=== PATIENT | female | born 1985 | race Two or more races ===

== ENCOUNTER 2017-09-24 17:50 | Emergency (ER) | payer MEDICAID, OTHER ==
[~2017-09-24] VITALS: Ht 154.9 cm; Wt 127.0 kg
[2017-09-24 18:00] VITALS: BP 118/69
[2017-09-24] MEDS ORDERED: ALBUTEROL SULF 2.5 MG/0.5ML(0.5%) NEB SOLN NEB ONE (18:30)
[2017-09-24] MEDS ORDERED: IPRATROPIUM BROM 0.5 MG/2.5ML INH SOL NEB ONE (18:30)
[2017-09-24] MEDS ORDERED: cefTRIAXone SOD 1,000 MG VL IM ONE (20:45)
[2017-09-24] MEDS ORDERED: methylPREDNISolone SOD SUCC 125 MG/2 ML VL IM ONE (20:45)
== END 2017-09-24 21:14 | disposition home or self-care (01) ==
LOC: ER 17:57
DX: J45.909 Unspecified asthma, uncomplicated (principal)
CPT/HCPCS: 71046; 94640; 96372; 99284; J0696; J2930

== ENCOUNTER 2019-02-21 17:07 | Emergency (ER) | payer MEDICAID ==
[~2019-02-21] VITALS: Ht 157.5 cm; Wt 89.8 kg
[2019-02-21 17:14] VITALS: BP 131/77
[2019-02-21] MEDS ORDERED: methylPREDNISolone SOD SUCC 125 MG/2 ML VL IM ONE (17:30)
[2019-02-21] MEDS ORDERED: cefTRIAXone SOD 1,000 MG VL IM ONE (17:30)
[2019-02-21] MEDS ORDERED: ALBUTEROL SULF 2.5 MG/0.5ML(0.5%) NEB SOLN NEB ONE (17:30)
[2019-02-21] MEDS ORDERED: IPRATROPIUM BROM 0.5 MG/2.5ML INH SOL NEB ONE (17:30)
[2019-02-21] MEDS ORDERED: PATIENTS OWN MEDICATION (XOPENEX 1.25 MG) NEB STA (18:00)
[2019-02-21] MEDS ORDERED: LEVALBUTEROL HCL 1.25 MG/0.5 ML NEB SOLN NEB STA (18:26)
== END 2019-02-21 19:18 | disposition home or self-care (01) ==
LOC: ER 17:09
DX: J45.901 Unspecified asthma with (acute) exacerbation (principal); J03.90 Acute tonsillitis, unspecified
CPT/HCPCS: 94640; 96372; 99284; J0696; J2930; J7611; J7612; J7644

== ENCOUNTER 2019-05-30 08:20 | Emergency (ER) | payer MEDICAID ==
[~2019-05-30] VITALS: Ht 154.9 cm; Wt 90.7 kg
[2019-05-30] MEDS ORDERED: ALBUTEROL SULF 2.5 MG/0.5ML(0.5%) NEB SOLN NEB ONE ×3 (09:00→09:30)
[2019-05-30] MEDS ORDERED: IPRATROPIUM BROM 0.5 MG/2.5ML INH SOL ONE ×2 (09:00→09:37)
[2019-05-30] MEDS ORDERED: methylPREDNISolone SOD SUCC 125 MG/2 ML VL IM ONE (09:00)
[2019-05-30] MEDS ORDERED: IPRATROPIUM BROM 0.5 MG/2.5ML INH SOL NEB ONE (09:00)
[2019-05-30] MEDS ORDERED: HYDROcodone-ACET 5/325MG TAB PO ONE (10:30)
[2019-05-30 10:32] VITALS: BP 125/78
== END 2019-05-30 10:35 | disposition home or self-care (01) ==
LOC: ER 08:21
DX: S70.362A Insect bite (nonvenomous), left thigh, initial encounter (principal); R09.81 Nasal congestion; J45.901 Unspecified asthma with (acute) exacerbation; W57.XXXA Bitten or stung by nonvenomous insect and other nonvenomous arthropods, initial encounter; Y93.89 Activity, other specified; Y99.8 Other external cause status; Y92.89 Other specified places as the place of occurrence of the external cause
CPT/HCPCS: 94640; 96372; 99284; J2930; J7611; J7644

== ENCOUNTER 2019-08-01 10:16 | Emergency (ER) | payer MEDICAID ==
[~2019-08-01] VITALS: Ht 157.5 cm; Wt 95.3 kg
[2019-08-01] MEDS ORDERED: ALBUTEROL SULF 2.5 MG/0.5ML(0.5%) NEB SOLN NEB STA (10:27)
[2019-08-01] MEDS ORDERED: IPRATROPIUM BROM 0.5 MG/2.5ML INH SOL NEB ONE (10:30)
[2019-08-01 11:03] VITALS: BP 118/87
[2019-08-01] MEDS ORDERED: methylPREDNISolone SOD SUCC 125 MG/2 ML VL IM ONE (11:15)
== END 2019-08-01 11:43 | disposition home or self-care (01) ==
LOC: ER 10:27
DX: J45.901 Unspecified asthma with (acute) exacerbation (principal)
CPT/HCPCS: 94640; 96372; 99283; J2930; J7611; J7644

== ENCOUNTER 2019-11-06 05:46 | Inpatient (IN) | payer MEDICAID ==
[~2019-11-06] VITALS: Ht 154.9 cm; Wt 89.0 kg
[2019-11-06] MEDS ORDERED: IPRATROPIUM BROM 0.5 MG/2.5ML INH SOL NEB ONE ×2 (06:00→10:15)
[2019-11-06] MEDS ORDERED: ALBUTEROL SULF 2.5 MG/0.5ML(0.5%) NEB SOLN NEB ONE ×3 (06:00→10:15)
[2019-11-06 06:31] LABS: Basophils # (auto) 0.1 10 ^3/uL (0-0.2); Basophils % (auto) 0.7 % (0.0-2.0); Eosinophils # (auto) 1.1 10 ^3/uL (0-0.8); Eosinophils % (auto) 12.3 % (0.0-7.0); Hematocrit 40.2 % (36.0-46.0); Hemoglobin 13.7 g/dL (12.2-16.2); Lymphocytes # (auto) 2.9 10 ^3/uL (0.4-5.4); Lymphocytes % (auto) 32.4 % (10.0-50.0); Mean Corpuscular Volume 99.7 fL (80.0-100.0); Monocytes # (auto) 0.6 10 ^3/uL (0-1.3); Monocytes % (auto) 6.9 % (0.0-12.0); Neutrophils # (auto) 4.2 10 ^3/uL (1.6-8.6); Neutrophils % (auto) 47.7 % (37.0-80.0); Platelet Count (auto) 265 10^3/uL (140-450); Red Blood Cells 4.03 10^6/uL (4.0-5.20); Red Cell Distribution Width 14.2 % (11.8-14.3); White Blood Cell 8.9 10^3/uL (4.4-10.8)
[2019-11-06 06:52] LABS: Albumin 3.7 g/dL (3.4-5.0); Calcium 8.7 mg/dL (8.5-10.1); Potassium 3.7 mmol/L (3.5-5.1)
[2019-11-06 06:55] LABS: BUN/Creatinine Ratio 9.7; Bilirubin, Total 0.2 mg/dL (0.2-1.0); Total Protein 7.2 g/dL (6.4-8.2)
[2019-11-06] MEDS ORDERED: cefTRIAXone W LIDOCAINE 1 GM IM IM ONE (07:30)
[2019-11-06] MEDS ORDERED: methylPREDNISolone SOD SUCC 125 MG/2 ML VL ONE (09:07)
[2019-11-06] MEDS ORDERED: methylPREDNISolone SOD SUCC 125 MG/2 ML VL IV ONE (09:15)
[2019-11-06] MEDS ORDERED: ALBUTEROL SULF 2.5 MG/0.5ML(0.5%) NEB SOLN NEB PRN (13:15)
[2019-11-06] MEDS ORDERED: ACETAMINOPHEN 500 MG TAB PO PRN (13:15)
[2019-11-06] MEDS ORDERED: MORPHINE SULF INJ 2 MG/ML SYRINGE 1ML IV PRN ×2 (13:15)
[2019-11-06] MEDS ORDERED: LACTULOSE 20Gm/30ML SOLN PO PRN (13:15)
[2019-11-06] MEDS ORDERED: traMADol HCL 50 MG TAB PO PRN (13:15)
[2019-11-06] MEDS ORDERED: NITROGLYCERIN 0.4 MG SL TAB SL PRN (13:15)
[2019-11-06] MEDS ORDERED: PROMETHAZINE HCL 25 MG/ML 1ML IV PRN (13:15)
[2019-11-06] MEDS: DOXYCYCLINE 100MG/250ML 250 ML IV SCH (13:30)
[2019-11-06] MEDS: SODIUM CHLORIDE 0.9% 1,000 ML IV SCH (13:30)
[2019-11-06] MEDS ORDERED: IPRATROPIUM BROM 0.5 MG/2.5ML INH SOL NEB SCH ×2 (14:00→22:00)
[2019-11-06] MEDS ORDERED: ALBUTEROL SULF 2.5 MG/0.5ML(0.5%) NEB SOLN NEB SCH (14:00)
[2019-11-06] MEDS ORDERED: ALBUTEROL SULF HFA 90MCG INH 200DOSE IN SCH (14:00)
[2019-11-06 14:30] VITALS: BP 131/79
--- NOTE | 2019-11-06 14:30 | NUR ---
RECEIVED PATIENT FROM CORNELIUS CHRIS, SHE INFORMED ME THE PATIENT IS IN THE RESTROOM CLEANING UP. THE PATIENT IS A/O X4, AMBULATORY AND INDEPENDENT. VS 100.2, 131/79, RR 22, HR 119, 92% ON 2L. PATIENT'S BREATHING IS LABORED WITH AUDIBLE WHEEZING BUT HAS JUST GOTTEN BACK INTO BED. SHE IS NOW IN BED SITTING UP AND WAS INSTRUCTED ON PURSED LIP BREATHING. PATIENT EXPRESSED SHE HAS HAD THIS BREATHING DIFFICULTY W/ HX OF ASTHMA FOR SEVERAL MONTHS. SPOKE WITH PATIENT ABOUT MEDS PERSCRIBED AND PLAN OF CARE, ORIENTED TO ROOM, CALL LIGHT AND SAFETY. PATIENT VERBALIZED UNDERSTANDING AND HAS NO FURTHER NEEDS AT THIS TIME.
[2019-11-06 16:00] VITALS: BP 131/79
--- NOTE | 2019-11-06 16:20 | NUR ---
Respiratory note: MDI TX NOT GIVEN. RT NOT AVAILABLE AT THE TIME.
[2019-11-06] MEDS ORDERED: PRE1T PO (17:19)
[2019-11-06] MEDS ORDERED: MONT10TA34 PO (17:19)
[2019-11-06] MEDS ORDERED: ALBUAER3 IN (17:19)
[2019-11-06] MEDS ORDERED: methylPREDNISolone SOD SUCC 40 MG/ML VL IV SCH (18:00)
--- NOTE | 2019-11-06 18:59 | NUR ---
PATIENT IS INCREASINGLY SHORT OF BREATH AND WHEEZING. PHONED HOSPITALIST AND RECEIVED NEW ORDERS FOR CONTINUED MED NEB TX, AND INCREASED STERIOD DOSE. PAGED RT AT THIS TIME TO LET THEM KNOW OF THE TREATMENT FOR THIS UNIT. AWAITING RETURN PHONE CALL.
[2019-11-06] MEDS ORDERED: ALBUTEROL SULF HFA 90MCG INH 200DOSE IN PRN (19:00)
[2019-11-06] MEDS ORDERED: methylPREDNISolone SOD SUCC 40 MG/ML VL ONE (19:03)
[2019-11-06 19:04] LABS: Urine Bacteria NONE SEEN /hpf (None Seen); Urine Blood Negative /uL (Negative); Urine Mucus FEW (None Seen); Urine Specific Gravity 1.025 (1.001-1.035); Urine WBC <1 /hpf (0 - 5)
[2019-11-06] MEDS: methylPREDNISolone SOD SUCC 40 MG/ML VL IV SCH (19:14)
--- NOTE | 2019-11-06 19:27 | NUR ---
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 PATIENT'S BREATHING IS STILL LABORED BUT SHE IS SITTING UP FACETIMING WITH HER CHILDREN AND SAYS SHE FEELS LIKE HER BREATHING ISN'T BAD IT WAS WHEN SHE WAS EATING. BED IS LOW AND CALL LIGHT IS IN REACH. PATIENT WAS INSTRUCTED BY MYSELF AND NIGHT RN REEMA TO CALL IF HER BREATHING WORSENS AND INFORMED HER SHE WILL BE GETTING SCHEDULED BREATHING TREATMENTS.
[2019-11-06 21:45] VITALS: BP 131/79
[2019-11-06] MEDS: ALBUTEROL SULF HFA 90MCG INH 200DOSE IN SCH (22:14)
[2019-11-07] MEDS ORDERED: ALBUTEROL SULF 2.5 MG/0.5ML(0.5%) NEB SOLN NEB ONE (02:00)
[2019-11-07] MEDS: SODIUM CHLORIDE 0.9% 1,000 ML IV SCH ×2 (02:28→16:02)
[2019-11-07] MEDS: methylPREDNISolone SOD SUCC 40 MG/ML VL IV SCH (02:28)
[2019-11-07] MEDS: DOXYCYCLINE 100MG/250ML 250 ML IV SCH ×2 (02:28→16:01)
[2019-11-07] MEDS: ALBUTEROL SULF HFA 90MCG INH 200DOSE IN SCH ×3 (07:00→22:19)
--- NOTE | 2019-11-07 07:02 | NUR ---
Respiratory note: HR 105, RR 14, SPO2 96% ON RA. BS DIMINISHED WITH EXPIRATORY WHEEZES.ALBUTEROL INHALER ADMINISTERED BY RN. NO SIGNS OR SYMPTOMS OF RESPIRATORY DISTRESS NOTED AT THIS TIME.RN AT BEDSIDE.
--- NOTE | 2019-11-07 08:30 | NUR ---
Opening Shift Note Assumed care of patient, awake and alert x4. No S/S of distress/SOB or pain. Patient on 2l nasal cannula. Denies any use of oxygen at home but reports using a inhaler and nebulizer at home. Instructed on POC and to call for assist PRN, will continue to monitor for changes Q1hr and PRN.
[2019-11-07 09:00] VITALS: BP 115/69
[2019-11-07] MEDS: ENOXAPARIN SOD 40 MG/0.4 ML SYRINGE SC SCH (09:41)
[2019-11-07] MEDS: methylPREDNISolone SOD SUCC 125 MG/2 ML VL IV SCH ×2 (09:41→18:08)
[2019-11-07 13:00] VITALS: BP 126/88
--- NOTE | 2019-11-07 13:45 | NUR ---
Manuela GAN AT BEDSIDE.
[2019-11-07 14:39] LABS: Basophils # (auto) 0.3 10 ^3/uL (0-0.2); Basophils % (auto) 1.2 % (0.0-2.0); Eosinophils # (auto) 0 10 ^3/uL (0-0.8); Hemoglobin 13.1 g/dL (12.2-16.2); Lymphocytes % (auto) 3.9 % (10.0-50.0); Mean Corpuscular Hemoglobin 33.3 pg (28.0-32.0); Mean Corpuscular Hgb Conc. 32.8 g/dL (32.0-36.0); Mean Corpuscular Volume 101.5 fL (80.0-100.0); Monocytes # (auto) 0.5 10 ^3/uL (0-1.3); Monocytes % (auto) 1.9 % (0.0-12.0); Neutrophils # (auto) 23.3 10 ^3/uL (1.6-8.6); Nucleated Red Blood Cells % 0.3 %; Platelet Count (auto) 279 10^3/uL (140-450); Red Blood Cells 3.94 10^6/uL (4.0-5.20); Red Cell Distribution Width 14.2 % (11.8-14.3)
[2019-11-07 14:58] LABS: Albumin 3.5 g/dL (3.4-5.0); Calcium 8.5 mg/dL (8.5-10.1); Magnesium 2.3 mg/dL (1.6-2.6); Potassium 3.9 mmol/L (3.5-5.1)
[2019-11-07 15:02] LABS: BUN/Creatinine Ratio 9.7; Bilirubin, Total 0.2 mg/dL (0.2-1.0)
--- NOTE | 2019-11-07 15:22 | NUR ---
RECEIVED TELEPHONE ORDER FROM Manuela GAN FOR PATIENT TO SHOWER.
--- NOTE | 2019-11-07 15:32 | NUR ---
Respiratory note: HR 80, RR 16, SPO2 94% ALBUTEROL INHALER GIVEN BY RT. NO SIGNS OR SYMPTOMS OF RESPIRATORY DISTRESS NOTED. BS EXPIRATORY WHEEZES WHEEZES.
[2019-11-07 17:30] VITALS: BP 144/94
--- NOTE | 2019-11-07 17:30 | NUR ---
IV insertion IV access obtained, via clean sterile technique by inserting 20 gauge catheter at LFA after 1 attempt(s). IV secured properly. No trauma to site. Patient tolerated well. IV TO R WRIST DC'D DUE TO INFILTRATION. NOTE:
--- NOTE | 2019-11-07 19:15 | NUR ---
Opening Shift Note Assumed care of patient, awake, alert and oriented x4, even and unlabored respirations, no S/S of distress/SOB or pain. Patient able to turn independently, bed in lowest locked position, side rails up x2, and call light within reach. Instructed on POC and to call for assist PRN, will continue to monitor for changes Q1hr and PRN.
[2019-11-07 21:02] LABS: Ferritin 34.8 ng/mL (10-322)
--- NOTE | 2019-11-07 22:46 | NUR ---
Respiratory note: PT'S SCHEDULED MDI TREATMENT WAS GIVEN BY CORNELIUS BENAVIDEZ AT 2219. PT ASSESSED AT 2246, NO RESPIRATORY DISTRESS NOTED. HR 99 RR 20 POX 96% ON 2L NASAL CANNULA.
[2019-11-08] MEDS: DOXYCYCLINE 100MG/250ML 250 ML IV SCH ×2 (02:00→12:55)
[2019-11-08] MEDS: methylPREDNISolone SOD SUCC 125 MG/2 ML VL IV SCH ×2 (02:01→09:38)
[2019-11-08] MEDS: SODIUM CHLORIDE 0.9% 1,000 ML IV SCH ×2 (05:39→07:00)
--- NOTE | 2019-11-08 06:18 | NUR ---
Received patient transfer [facility], per wheelchair, awake alert oriented x 4, not in distress, placed in the bed comfortably, put oxygen on 2liters per nasal canula.
[2019-11-08] MEDS: ALBUTEROL SULF HFA 90MCG INH 200DOSE IN SCH ×2 (06:30→14:50)
--- NOTE | 2019-11-08 07:21 | NUR ---
OPENING SHIFT NOTE Assumed care of patient from cook night RN. Patient is alert and oriented x4, no signs of distress noted, patient denies pain. Patient was updated on the plan of care and verbalized understanding stating "I feel better and want to go home". She is currently on 2L via NC with saturation 94%. Bed is locked, in the lowest position, side rails up x2 and call light is in reach. Patient was encouraged to call for assistance as needed.
--- NOTE | 2019-11-08 07:35 | NUR ---
Report given to Kat Allison, patient is resting no distress.
[2019-11-08 08:00] VITALS: BP 116/78
--- NOTE | 2019-11-08 08:17 | NUR ---
COVID NEGATIVE Called lab, spoke to Shawna to clarify on patient COVID status. Per lab patient is negative.
[2019-11-08] MEDS: ENOXAPARIN SOD 40 MG/0.4 ML SYRINGE SC SCH (09:38)
[2019-11-08 12:00] VITALS: BP 136/68
[2019-11-08] MEDS ORDERED: PANTOPRAZOLE 40 MG TAB PO ONE (13:45)
[2019-11-08] MEDS ORDERED: FUROSEMIDE 40 MG/4 ML VIAL IV ONE (13:45)
[2019-11-08] MEDS ORDERED: methylPREDNISolone SOD SUCC 40 MG/ML VL IV SCH (14:00)
[2019-11-08] MEDS: IPRATROPIUM BROM 0.5 MG/2.5ML INH SOL NEB SCH ×2 (14:00→18:44)
[2019-11-08] MEDS ORDERED: ACETYLCYSTEINE 10 %(100MG/ML) SOL 4ML NEB SCH (14:00)
--- NOTE | 2019-11-08 14:23 | NUR ---
IV insertion IV access obtained, via clean sterile technique by inserting 22 gauge catheter at right AC after 2 attempt. IV secured properly. No trauma to site. Patient tolerated well.
[2019-11-08] MEDS: ALBUTEROL SULF 2.5 MG/0.5ML(0.5%) NEB SOLN NEB SCH ×2 (14:50→18:44)
[2019-11-08] MEDS ORDERED: FUROSEMIDE 100 MG/10ML VIAL IV ONE (15:00)
--- NOTE | 2019-11-08 16:45 | NUR ---
ELVIA PAGED to update on patient status. Patient ambulated around the nurses station four times. Oxygen saturation on room air was 96%. Patient stating that she "Wants to go home, I feel so much better" Awaiting call back.
[2019-11-08 17:00] VITALS: BP 107/65
--- NOTE | 2019-11-08 18:53 | NUR ---
Respiratory note: AT BEDSIDE PT AGITATED SUGGESTING LEAVING AMA. REFUSING MED NEB TX. PT STATES SHE FEELS WELL AND WANTS TO GO HOME NOW. PT ON RA POX 95-97% HR 90S. BS ARE CLEAR DIMINISHED. PT DENIES COUGHING OUT ANY PHLEGM OR ANY ISSUES WITH HER BREATHING.
--- NOTE | 2019-11-08 19:12 | NUR ---
Closing shift notes Care endorsed to mold shifter RN.
--- NOTE | 2019-11-08 21:40 | NUR ---
PT LEFT AMA AT 1930. NOTIFIED HOSPITAL LIST,DR CONNORS.
[2019-11-09] MEDS ORDERED: PANTOPRAZOLE 40 MG TAB PO SCH (10:00)
[2019-11-09 10:01] LABS: Free T4 (Free Thyroxine) 1.03 ng/dL (0.89-1.76)
== END 2019-11-08 19:30 | disposition left against medical advice (07) | DRG 133 ==
LOC: ER 05:46 → TELE 05:47 → TELE-EAST 14:29 → TELE-WESTW 11-08 09:07
PROVIDERS: ADMIT Internal Medicine; ATTEND Internal Medicine
DX: J96.00 Acute respiratory failure, unspecified whether with hypoxia or hypercapnia (principal); J45.41 Moderate persistent asthma with (acute) exacerbation; Z53.29 Procedure and treatment not carried out because of patient's decision for other reasons; E66.9 Obesity, unspecified; Z20.828 Contact with and (suspected) exposure to other viral communicable diseases; Z82.5 Family history of asthma and other chronic lower respiratory diseases; Z68.37 Body mass index [BMI] 37.0-37.9, adult; Z79.899 Other long term (current) drug therapy
CPT/HCPCS: 36415; 71045; 80053; 81001; 82728; 83036; 83615; 83735; 84439; 84443; 85025; 85379; 87070; 87077; 87186; 87205; 87804; 87880; 94640; 96365; 96372; 96375; G0378; J0696; J3490

== ENCOUNTER 2019-11-23 13:04 | Emergency (ER) | payer MEDICAID ==
[~2019-11-23] VITALS: Ht 154.9 cm; Wt 65.8 kg
[~2019-11-23 13:04] MED LIST: ALBUAER3 IN; MONT10TA34 PO; PRE1T PO
[2019-11-23 13:17] VITALS: BP 145/95
[2019-11-23] MEDS ORDERED: SILVER SULFADIAZINE 1 % TOPICAL CREAM 50GM TOP ONE ×2 (15:10→15:15)
== END 2019-11-23 15:29 | disposition home or self-care (01) ==
LOC: ER 13:04
DX: T22.212A Burn of second degree of left forearm, initial encounter (principal); T31.0 Burns involving less than 10% of body surface; X10.2XXA Contact with fats and cooking oils, initial encounter; Y93.G3 Activity, cooking and baking; Y92.89 Other specified places as the place of occurrence of the external cause; Y99.8 Other external cause status
CPT/HCPCS: 16000

== ENCOUNTER 2020-01-08 09:00 | Emergency (ER) | payer MEDICAID ==
[~2020-01-08] VITALS: Ht 154.9 cm; Wt 102.1 kg
[2020-01-08 09:03] VITALS: BP 133/78
[2020-01-08] MEDS ORDERED: ALBUTEROL SULF 2.5 MG/0.5ML(0.5%) NEB SOLN NEB ONE (09:30)
[2020-01-08] MEDS ORDERED: methylPREDNISolone SOD SUCC 125 MG/2 ML VL IM ONE (09:30)
[2020-01-08] MEDS ORDERED: IPRATROPIUM BROM 0.5 MG/2.5ML INH SOL NEB ONE (09:30)
== END 2020-01-08 10:08 | disposition home or self-care (01) ==
LOC: ER 09:00
DX: J45.901 Unspecified asthma with (acute) exacerbation (principal)
CPT/HCPCS: 71046; 94640; 96372; 99283; J2930; J7644

== ENCOUNTER 2020-05-29 16:47 | Emergency (ER) | payer MEDICAID ==
[~2020-05-29] VITALS: Ht 154.9 cm; Wt 90.7 kg
[2020-05-29 16:48] VITALS: BP 120/80
[2020-05-29] MEDS ORDERED: IPRATROPIUM BROM 0.5 MG/2.5ML INH SOL HHN ONE (17:00)
[2020-05-29] MEDS ORDERED: ALBUTEROL SULF 2.5 MG/0.5ML(0.5%) NEB SOLN HHN ONE (17:00)
[2020-05-29] MEDS ORDERED: methylPREDNISolone SOD SUCC 125 MG/2 ML VL IV ONE (17:00)
[2020-05-29 17:28] LABS: Basophils # (auto) 0.1 10 ^3/uL (0-0.2); Basophils % (auto) 0.7 % (0.0-2.0); Eosinophils # (auto) 0.2 10 ^3/uL (0-0.8); Lymphocytes # (auto) 2.6 10 ^3/uL (0.4-5.4); Lymphocytes % (auto) 33.5 % (10.0-50.0); Mean Corpuscular Hemoglobin 32.6 pg (28.0-32.0); Mean Corpuscular Hgb Conc. 33.4 g/dL (32.0-36.0); Mean Corpuscular Volume 97.5 fL (80.0-100.0); Monocytes # (auto) 0.6 10 ^3/uL (0-1.3); Monocytes % (auto) 8.2 % (0.0-12.0); Neutrophils # (auto) 4.4 10 ^3/uL (1.6-8.6); Neutrophils % (auto) 55.6 % (37.0-80.0); Platelet Count (auto) 243 10^3/uL (140-450); Red Cell Distribution Width 14.2 % (11.8-14.3); White Blood Cell 7.9 10^3/uL (4.4-10.8)
[2020-05-29 17:50] LABS: Albumin 3.3 g/dL (3.4-5.0); BUN/Creatinine Ratio 5.1; Calcium 8.5 mg/dL (8.5-10.1); Potassium 3.1 mmol/L (3.5-5.1)
[2020-05-29 17:53] LABS: Bilirubin, Total 0.2 mg/dL (0.2-1.0); Total Protein 6.4 g/dL (6.4-8.2)
== END 2020-05-29 18:22 | disposition home or self-care (01) ==
LOC: ER 16:47
DX: J45.21 Mild intermittent asthma with (acute) exacerbation (principal)
CPT/HCPCS: 36415; 71045; 80053; 85025; 94644; 96374; 99285; J2930; J7644

== ENCOUNTER 2021-07-03 14:27 | Emergency (ER) | payer MEDICAID ==
[~2021-07-03] VITALS: Ht 157.5 cm; Wt 81.6 kg
[~2021-07-03 14:27] MED LIST changes: +MONT-8 PO; -MONT10TA34 PO
[2021-07-03] MEDS ORDERED: methylPREDNISolone SOD SUCC 125 MG/2 ML VL IV ONE (14:45)
[2021-07-03 15:41] LABS: Basophils # (auto) 0.1 10 ^3/uL (0-0.2); Basophils % (auto) 0.9 % (0.0-2.0); Eosinophils # (auto) 0.4 10 ^3/uL (0-0.8); Eosinophils % (auto) 4.9 % (0.0-7.0); Hematocrit 44.3 % (36.0-46.0); Hemoglobin 14.7 g/dL (12.2-16.2); Lymphocytes # (auto) 2.1 10 ^3/uL (0.4-5.4); Lymphocytes % (auto) 27.4 % (10.0-50.0); Mean Corpuscular Hemoglobin 33.3 pg (28.0-32.0); Mean Corpuscular Hgb Conc. 33.1 g/dL (32.0-36.0); Mean Corpuscular Volume 100.6 fL (80.0-100.0); Monocytes # (auto) 0.4 10 ^3/uL (0-1.3); Neutrophils # (auto) 4.6 10 ^3/uL (1.6-8.6); Neutrophils % (auto) 61.8 % (37.0-80.0); Red Cell Distribution Width 14.6 % (11.8-14.3); White Blood Cell 7.5 10^3/uL (4.4-10.8)
[2021-07-03 16:31] LABS: Albumin 3.9 g/dL (3.4-5.0); BUN/Creatinine Ratio 9.1; Bilirubin, Total 0.7 mg/dL (0.2-1.0); CRP High Sensitivity 0.49 mg/dL (< 0.3); Calcium 8.8 mg/dL (8.5-10.1); Potassium 3.4 mmol/L (3.5-5.1); Total Protein 7.1 g/dL (6.4-8.2)
[2021-07-04] MEDS ORDERED: ALBUTEROL SULF 2.5 MG/0.5ML(0.5%) NEB SOLN ONE (00:09)
[2021-07-04] MEDS ORDERED: IPRATROPIUM BROM 0.5 MG/2.5ML INH SOL ONE (00:09)
[2021-07-04] MEDS ORDERED: IPRATROPIUM BROM 0.5 MG/2.5ML INH SOL NEB ONE ×2 (00:30→02:45)
[2021-07-04] MEDS ORDERED: ALBUTEROL SULF 2.5 MG/0.5ML(0.5%) NEB SOLN NEB ONE ×2 (00:30→02:45)
[2021-07-04 03:30] VITALS: BP 128/79
== END 2021-07-04 03:45 | disposition home or self-care (01) ==
LOC: ER 14:27
DX: J45.902 Unspecified asthma with status asthmaticus (principal); F12.10 Cannabis abuse, uncomplicated; Z98.51 Tubal ligation status; Z20.822 Contact with and (suspected) exposure to COVID-19
CPT/HCPCS: 36415; 71045; 80053; 82728; 83605; 85025; 85379; 86141; 87040; 87426; 93005; 94640; 96374; 99285; J2930; J7644

== ENCOUNTER 2022-01-15 10:42 | Emergency (ER) | payer MEDICAID ==
[~2022-01-15] VITALS: Ht 154.9 cm; Wt 72.6 kg
[2022-01-15 10:45] VITALS: BP 168/92
[2022-01-15] MEDS ORDERED: PANTOPRAZOLE 40 MG/10 ML VIAL INJ IV ONE (11:00)
[2022-01-15] MEDS ORDERED: PROCHLORPERAZINE EDISYLATE 5 MG/ML 2ML VIAL IV ONE (11:00)
[2022-01-15] MEDS ORDERED: SODIUM CHLORIDE 0.9% 1,000 ML IVB ONE (11:00)
[2022-01-15] MEDS ORDERED: MORPHINE SULFATE 4 MG/ML SYR/VIAL IV ONE (11:00)
[2022-01-15 11:51] LABS: Basophils # (auto) 0 10 ^3/uL (0-0.2); Basophils % (auto) 0.1 % (0.0-2.0); Eosinophils # (auto) 0.1 10 ^3/uL (0-0.8); Eosinophils % (auto) 0.5 % (0.0-7.0); Hematocrit 41.7 % (36.0-46.0); Hemoglobin 13.9 g/dL (12.2-16.2); Lymphocytes # (auto) 0.8 10 ^3/uL (0.4-5.4); Lymphocytes % (auto) 7.1 % (10.0-50.0); Mean Corpuscular Hemoglobin 36.2 pg (28.0-32.0); Mean Corpuscular Hgb Conc. 33.2 g/dL (32.0-36.0); Mean Corpuscular Volume 108.9 fL (80.0-100.0); Monocytes # (auto) 0.6 10 ^3/uL (0-1.3); Monocytes % (auto) 5.5 % (0.0-12.0); Neutrophils # (auto) 9.8 10 ^3/uL (1.6-8.6); Neutrophils % (auto) 86.8 % (37.0-80.0); Red Blood Cells 3.83 10^6/uL (4.0-5.20); Red Cell Distribution Width 14.7 % (11.8-14.3); White Blood Cell 11.3 10^3/uL (4.4-10.8)
[2022-01-15 12:07] LABS: Albumin 3.5 g/dL (3.4-5.0); Calcium 8.4 mg/dL (8.5-10.1); Potassium 4.1 mmol/L (3.5-5.1)
[2022-01-15 12:12] LABS: BUN/Creatinine Ratio 8.8; Bilirubin, Total 0.8 mg/dL (0.2-1.0); Total Protein 6.6 g/dL (6.4-8.2)
== END 2022-01-15 12:05 | disposition left against medical advice (07) ==
LOC: ER 11:19
DX: F12.188 Cannabis abuse with other cannabis-induced disorder (principal); D72.829 Elevated white blood cell count, unspecified; J45.909 Unspecified asthma, uncomplicated; I10 Essential (primary) hypertension; F12.10 Cannabis abuse, uncomplicated; Z98.51 Tubal ligation status
CPT/HCPCS: 36415; 80053; 82150; 83690; 85025; 96361; 96374; 96375; 99284; C9113; J0780; J7030

== ENCOUNTER 2023-05-29 23:01 | Emergency (ER) | payer SELFPAY ==
[~2023-05-29] VITALS: Ht 157.5 cm; Wt 72.7 kg
[2023-05-29 23:29] VITALS: BP 116/80; PULSE 91; RESP 24; O2SAT 97
[2023-05-29] MEDS ORDERED: IPRATROPIUM BROM 0.5 MG/2.5ML INH SOL NEB ONE (23:30)
[2023-05-29] MEDS ORDERED: ALBUTEROL SULF 2.5 MG/0.5ML(0.5%) NEB SOLN NEB ONE (23:30)
== END 2023-05-30 01:32 | disposition left against medical advice (07) ==
LOC: ER 23:01
DX: J45.909 Unspecified asthma, uncomplicated (principal); Z53.21 Procedure and treatment not carried out due to patient leaving prior to being seen by health care provider
CPT/HCPCS: 99281; J7644

== ENCOUNTER 2024-12-09 15:18 | Emergency (ER) | payer SELFPAY ==
[~2024-12-09] VITALS: Ht 157.5 cm; Wt 81.4 kg
--- NOTE | 2024-12-09 16:17 | ECG ---
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
[2024-12-09 16:26] VITALS: BP 115/77; PULSE 62; RESP 16; TEMP 98; O2SAT 99
--- NOTE | 2024-12-09 17:08 | DVH ---
EXAMINATION: XY L RIB X RAY INDICATION: R/o fracture COMPARISON: None TECHNIQUE: Frontal view of the chest and <<>> views of the <<>> ribs history FINDINGS: No focal consolidation, pleural effusion or significant pneumothorax. Normal cardiomediastinal silhou ette. No displaced left rib fracture. IMPRESSION: 1. No acute cardiopulmonary disease. No displaced left rib fracture.
--- NOTE | 2024-12-09 17:28 | ED.PDOC ---
Back pain HPI HPI Comments 39 year old presents for possible rib fracture. Concerned about a possible fracture to the left rib after a bear hug. Denies chest pain shortness of breath Chief Complaint: Chest Wall Injury Time Seen by MD: 16:16 Primary Care Provider: DR. HEALY Reviewed Notes: Nurses Notes, Medications, Allergies Allergies: Coded Allergies: NO KNOWN ALLERGIES (Unverified , 08/01/19) Home Meds Reported Medications Montelukast Sodium (MONTELUKAST SODIUM) 10 Mg Tab, 1 TAB PO DAILY, #30 TAB 5 Refills 11/06/19 Prednisone (PREDNISONE) 1 Mg Tb, 4 TAB PO DAILY, #360 TAB 3 Refills 11/06/19 Albuterol Sulfate (VENTOLIN MDI) 90 Mcg Ih, 90 MCG IN, INH 11/06/19 Information Source: Patient Mode of Arrival: Ambulatory Past Medical History PAST MEDICAL HISTORY: Asthma, HTN Surgical History: BTL ANIMAL DOCTOR History: No Pertinent ANIMAL DOCTOR History Family History Family History: Unknown Social History Smoker: Non-Smoker Alcohol: Occasionally Drugs: Marijuana Lives In: Home All Other Systems: Reviewed and Negative (PER HPI) Physical Exam General Appearance: No Apparent Distress, Normal HEENT: Normal ENT Inspection, Pharynx Normal, TMs Normal Neck: Full Range of Motion, Non-Tender, Normal, Normal Inspection Respiratory: Chest Non-Tender, Lungs Clear, No Accessory Muscle Use, No Respiratory Distress, Normal Breath Sounds Cardiovascular: No Murmur, No Gallop, Regular Rate/Rhythm Breast Exam: Deferred Gastrointestinal: No Organomegaly, Non Tender, No Pulsatile Mass, Normal Bowel Sounds, Soft Genitalia: Deferred Pelvic: Deferred Rectal: Deferred Extremities: No calf tenderness, Normal capillary refill, Normal inspection, Normal range of motion, Non-tender, No pedal edema Musculoskeletal : Apperance: Normal Neurologic: Alert, glue line operator II-XII nml as Tested, No Motor Deficits, Normal Affect, Normal Mood, No Sensory Deficits Cerebellar Function: Normal Reflexes: Normal Skin: Dry, Normal Color, Warm Lymphatic: No Adenopathy Was a procedure done? Was a procedure done?: No Back Pain Differential Dx Differential Diagnosis: Fracture, Musculoskeletal Pain X-Ray, Labs, Meds, VS Vital Signs Date Time Temp Pulse Resp B/P (MAP) Pulse Ox O2 Delivery O2 Flow Rate FiO2 12/09/24 16:26 62 16 99 Room Air 12/09/24 16:26 98.0 62 16 115/77 (90) 99 98.0 12/09/24 16:16 57 12/09/24 16:09 98.0 62 16 115/77 (90) 99 98.0 X-Ray, Labs, Meds, VS Comment Patient is stable for discharge at this time. External notes reviewed. Test results and diagnostic imaging interpreted. All diagnostic findings, discharge care, education and instructions provided Follow-up with PCP in 2 to 3 days Patient verbalized understanding and agreed to treatment plan Vital signs stable, afebrile, no acute distress noted Patient ambulatory with strong steady gait Advised to return precautions for any new or worsening symptoms, return to ER immediately for re-evaluation Patient is aware that the purpose of this visit was for an acute medical emergency requiring emergent stabilization. Chronic conditions, including malignancies have not been ruled out. Patient is instructed to follow up with PCP as directed and discharge instructions for continued care and workup. If unable to arrange follow-up, patient is to return to the emergency department for reassessment. Patient (parent or legal guardian if applicable) was given verbal and written discharge instructions and acknowledges understanding. Time of 1ST Reevaluation: 17:03 Reevaluation 1ST: Improved Patient Education/Counseling: Diagnosis, Treatment Family Education/Counseling: Diagnosis, Treatment Departure 1 Departure Time of Disposition: 17:27 Impression: Primary Impression: Rib pain Additional Impression: Chest wall pain Disposition: 01 HOME / SELF CARE / HOMELESS Condition: Stable Critical Care Note Critical Care Time?: No Stability Stability form required: No Heart Score Heart Score: Heart Score Response (Comments) Value History N/A 0 EKG N/A 0 Age N/A 0 Risk Factors N/A 0 Troponin N/A 0 Total 0 SCOTT JAY NP December 09, 2024 17:28
== END 2024-12-09 17:28 | disposition home or self-care (01) ==
LOC: ER 15:26
DX: R07.81 Pleurodynia (principal); R07.89 Other chest pain; I10 Essential (primary) hypertension; J45.909 Unspecified asthma, uncomplicated; F12.90 Cannabis use, unspecified, uncomplicated; Z79.52 Long term (current) use of systemic steroids; Z79.899 Other long term (current) drug therapy; Z98.51 Tubal ligation status
CPT/HCPCS: 71101; 93005